=== PATIENT | female | born 1945 | race Caucasian/White ===

== ENCOUNTER → 2017-08-12 | Outpatient (CLI) | payer MEDICARE, OTHER ==
[~2017-08-12] MED LIST: CALC1TAB87 PO; ECASA81 PO; FERR325T18 PO; FOLI400T PO; K-TA10TA PO; LOSA100T PO; MULT1TAB61 PO; OMEGCAP PO; SIMV20TA PO; TRIA37.5 PO; ZANT150T2 PO
[2017-08-12 09:39] LABS: AUTOMATED NEUTROPHIL # 3.4 TH/MM3 (1.8-7.7); BASOPHIL % 0.6 % (0.0-2.0); EOSINOPHIL # 0.2 TH/MM3 (0-0.4); EOSINOPHIL % 3.3 % (0.0-4.0); HEMATOCRIT 36.6 % (35.0-46.0); HEMOGLOBIN 12.7 GM/DL (11.6-15.3); LYMPH % 21.2 % (9.0-44.0); LYMPHOCYTE # 1.1 TH/MM3 (1.0-4.8); MEAN CELL VOLUME 83.6 FL (80.0-100.0); MEAN CORPUSCULAR HEMOGLOBIN 29.1 PG (27.0-34.0); MEAN CORPUSCULAR HGB CONC 34.8 % (32.0-36.0); MEAN PLATELET VOLUME 7.7 FL (7.0-11.0); MONO % 6.2 % (0.0-8.0); MONOCYTE # 0.3 TH/MM3 (0-0.9); NEUT % 68.7 % (16.0-70.0); PLATELET COUNT 186 TH/MM3 (150-450); RED BLOOD COUNT 4.38 MIL/MM3 (4.00-5.30); RED CELL DISTRIBUTION WIDTH 13.4 % (11.6-17.2)
[2017-08-12 09:41] LABS: BILIRUBIN, URINE NEG (NEG); BLOOD, URINE NEG (NEG); GLUCOSE,URINE NEG (NEG); KETONE, URINE NEG (NEG); MUCUS URINE FEW /lpf (OCC); NITRITE,URINE NEG (NEG); PH, URINE 7.5 (5.0-8.5); SQUAMOUS EPITHELIAL CELL URINE <1 /hpf (0-5); URINE COLOR LIGHT-YELLOW (YELLW/STRAW); URINE LEUKOCYTE ESTERASE NEG (NEG)
[2017-08-12 09:46] LABS: INTERNATIONAL NORMALIZED RATIO 0.9 RATIO; PROTHROMBIN TIME - PATIENT 9.6 SEC (9.8-11.6)
[2017-08-12 09:49] LABS: ALT (GPT) 26 U/L (10-53); AST (GOT) 30 U/L (15-37); BICARBONATE 31.3 MEQ/L (21.0-32.0); BLOOD UREA NITROGEN 18 MG/DL (7-18); CALCIUM 9.5 MG/DL (8.5-10.1); CHLORIDE 106 MEQ/L (98-107); CREATININE 1.11 MG/DL (0.50-1.00); GLOMERULAR FILTRATION RATE 49 ML/MIN (>89); GLUCOSE,FASTING 106 MG/DL (74-99); SODIUM (NA) 142 MEQ/L (136-145)
[2017-08-12 09:52] LABS: ALKALINE PHOSPHATASE 88 U/L (45-117); TOTAL BILIRUBIN ADULT 0.3 MG/DL (0.2-1.0); TOTAL PROTEIN 7.3 GM/DL (6.4-8.2)
--- NOTE | 2017-08-12 10:05 | RADRPT ---
EXAM DATE/TIME: 08/12/2017 09:48 [place] COMPARISON: No previous studies available for comparison. INDICATIONS : Evaluate for pneumonia,pneumothorax or communicable disease pre op for colon surgery. MEDICAL HISTORY : None. SURGICAL HISTORY : None. ENCOUNTER: Initial ACUITY: 1 day PAIN SCORE: 0/10 LOCATION: Bilateral chest FINDINGS: PA and lateral views of the chest. 1.2 cm nodular density in the right upper lung zone. The lungs are otherwise clear. Cardiomediastinal silhouette within normal limits. No evidence of pleural effusion or pneumothorax. CONCLUSION: 1.2 cm nodular density in the right upper lung zone. Recommend noncontrast chest CT to ev aluate for pulmonary nodule. No other acute cardiopulmonary disease identified. Manoj Beyer MD on August 12, 2017 at 9:58 Board Certified Radiologist. This report was verified electronically.
--- NOTE | 2017-08-12 22:53 | EKG ---
Date Performed: 08/12/2017 Time Performed: 09:12:40 PTAGE: 72 years EKG: Sinus rhythm Normal ECG NO PREVIOUS TRACING DOCTOR: Sarthak Merida Interpretating Date/Time 08/12/2017 22:53:32
== END ==
LOC: CPRE 08:43
PROVIDERS: ATTEND Colon & Rectal Surgery
DX: Z01.810 Encounter for preprocedural cardiovascular examination (principal); Z01.812 Encounter for preprocedural laboratory examination; Z01.818 Encounter for other preprocedural examination; K57.32 Diverticulitis of large intestine without perforation or abscess without bleeding
CPT/HCPCS: 36415; 71046; 80053; 81001; 85025; 85610; 85730; 93005

== ENCOUNTER 2017-08-20 06:29 | Inpatient (IN) | payer MEDICARE, OTHER ==
[2017-08-20] VITALS (7 sets, daily range): BP systolic 141–149; BP diastolic 65–70; PULSE 67–78; RESP 16–20; TEMP 97.6–98; O2SAT 97–98
[~2017-08-20] VITALS: Ht 160 cm; Wt 64.9 kg
[2017-08-20] MEDS ORDERED: LACTATED RINGER'S 1000 ML IV PRN (07:00)
[2017-08-20] MEDS ORDERED: ceFAZolin 2 GM PREMIX 50 ML IV SCH (07:00)
[2017-08-20] MEDS ORDERED: DEXT 5%-NACL 0.9% 1000 ML INJ 1,000 ML IV SCH (07:00)
[2017-08-20] MEDS ORDERED: METRONIDAZOLE 500 MG/100 ML ISONTONIC SOLN IV SCH (07:00)
[2017-08-20] MEDS ORDERED: CHLORHEXIDINE GLUCONATE 2 % 1 PACK (2 CLOTHS) TOPICAL PRN (07:00)
[2017-08-20] MEDS ORDERED: SODIUM CHLORID 0.9% 500 ML IV PRN (07:00)
[2017-08-20] MEDS ORDERED: POVIDONE IODINE 5% (ANTISEPSIS KIT) 4 APPLICATIONS EACH NARE PRN (07:00)
[2017-08-20] MEDS ORDERED: METOPROLOL TARTRATE 25 MG TAB PO PRN (07:00)
[2017-08-20] MEDS ORDERED: ARTIFICIAL TEARS OPTH OINT 3.5 APPLIC/3.5 GM TUBO ONE (07:16)
[2017-08-20] MEDS ORDERED: SUGAMMADEX SODIUM 200 MG/2 ML VIAL IV PUSH ONE (07:16)
[2017-08-20] MEDS ORDERED: ACETAMINOPHEN 1000 MG/100 ML 100 ML IV ONE (07:16)
--- NOTE | 2017-08-20 08:02 | PD.HP.UP ---
H&P Update Note The Pre-Admit History and Physical Examination regarding the above named patient was reviewed (including, but not limited to, vital signs, heart, lungs, co-morbid conditions), and upon re-examination it is noted that: the patient's condition has not significantly changed since the last examination. Li Pimentel MD Aug 20, 2017 08:02
--- NOTE | 2017-08-20 09:32 | PD.OP ---
Operative Report Date of Surgery: Aug 20, 2017 Preoperative Diagnosis: (1) Diverticulitis Postoperative Diagnosis: (1) Diverticulitis Procedure: Cystoscopy and placement of bilateral ureteral catheters Anesthesia: General Surgeon: Da Aden Shoe Handler(s): None Operation and Findings: Indication for urologic procedures: Consult intraoperatively to pass bilateral ureteral catheters to aid in visualization of this patient's ureters during her colorectal procedure. Urologic surgery procedures in detail: Concurrent with the colorectal surgeon, I proceeded with cystoscopy and placement of bilateral ureteral catheters as follows: Initially cystoscopic evaluation was performed utilizing the rigid cystoscope with the 22 Malaysian sheath and 30 lens. Both right and left ureteral orifices were in correct anatomic position draining clear yellow urine. There were no bladder mucosal lesions, calculi or diverticula formation. I then proceeded with passing a sensor 0.035 wire up the patient's left ureter until small amount of resistance was met. A 6 Malaysian open-ended ureteral catheter was advanced up over the wire 25 cm in a cephalad direction. With the catheter in place, the wire was withdrawn and reintroduced through a secondary site via the cystoscope. In similar fashion, the contralateral side was accomplished. With both catheters in place, the bladder was drained of irrigant fluid and cystoscope withdrawn. A 16 Malaysian 10 cc Asher catheter was placed and both open-ended ureteral catheters were anchored to the Asher via a connector. All 3 catheters were then placed to gravity drainage. This completes urologic surgery portion of combined procedures on this patient. Da Aden MD Aug 20, 2017 09:32
[2017-08-20] MEDS ORDERED: DEXAMETHASONE SOD PHOS 4 MG/ML VIAL IV ONE (12:00)
[2017-08-20] MEDS ORDERED: ONDANSETRON HCL 4 MG/2 ML VIAL IV ONE (12:00)
[2017-08-20] MEDS ORDERED: GLYCOPYRROLATE 1 MG/5 ML SYRINGE IV PUSH ONE (12:00)
[2017-08-20] MEDS ORDERED: STERILE WATER FOR INJECTION 20 ML VIAL IV ONE (12:00)
[2017-08-20] MEDS ORDERED: LIDOCAINE HCL 1% PF 5 ML SYRINGE OTHER ONE (12:00)
[2017-08-20] MEDS ORDERED: PHENYLEPH/NS 1000 MCG/10 ML SYR IV ONE (12:00)
[2017-08-20] MEDS ORDERED: VECURONIUM BROMIDE 20 MG VIAL IV ONE (12:00)
[2017-08-20] MEDS ORDERED: ROCURONIUM INJ 50 MG/5 ML SYRINGE IV PUSH ONE (12:00)
[2017-08-20] MEDS ORDERED: ePHEDrine/NS 25 MG/5 ML SYRINGE IV ONE (12:00)
[2017-08-20] MEDS ORDERED: NORMOSOL R INJ 1,000 ML IV ONE (12:00)
[2017-08-20] MEDS ORDERED: PROPOFOL 200 MG/20 ML AMP IV ONE (12:00)
[2017-08-20] MEDS ORDERED: NEOSTIGMINE 5 MG/5 ML SYRINGE IV PUSH ONE (12:00)
[2017-08-20] MEDS: D5-NS + KCL 20 MEQ INJ 1,000 ML IV SCH ×2 (13:30→20:05)
[2017-08-20] MEDS ORDERED: Post-op Orders (for Pharmacy) XX ONE (13:30)
[2017-08-20] MEDS ORDERED: ENALAPRILAT 1.25 MG/ML VIAL IV PUSH PRN (13:30)
[2017-08-20] MEDS ORDERED: ACETAMINOPHEN/HYDROcodone 325 MG/5 MG TAB PO PRN ×2 (13:30)
[2017-08-20] MEDS ORDERED: ENALAPRILAT 2.5 MG/2 ML VIAL IV PUSH PRN (13:30)
[2017-08-20] MEDS ORDERED: POTASSIUM CHLOR 40 MEQ PREMIX 100 ML IV PRN (13:30)
[2017-08-20] MEDS ORDERED: BENZOCAINE 6 MG/MENTHOL 10 MG LOZENGE BUCCAL PRN (13:30)
[2017-08-20] MEDS ORDERED: POTASSIUM CHLOR 20 MEQ PREMIX 100 ML IV PRN (13:30)
[2017-08-20] MEDS ORDERED: ACETAMINOPHEN 325 MG TAB PO PRN (13:30)
[2017-08-20] MEDS ORDERED: DO NOT ADM ANY ANTICOAGULANT DRUGS PRN (13:34)
[2017-08-20] MEDS ORDERED: MORPHINE SULFATE 4 MG/ML INJ ONE (13:43)
[2017-08-20] MEDS ORDERED: MIDAZOLAM HCL 2 MG/2 ML VIAL ONE (13:43)
[2017-08-20] MEDS ORDERED: NALOXONE HCL 0.4 MG/ML AMP IV PUSH PRN (13:45)
[2017-08-20] MEDS ORDERED: diphenhydrAMINE HCL 50 MG/ML VIAL IV PUSH PRN (13:45)
[2017-08-20] MEDS ORDERED: MORPHINE SULFATE 30 MG/30 ML PCA IV SCH (13:45)
[2017-08-20 13:49] LABS: AUTOMATED NEUTROPHIL # 11.9 TH/MM3 (1.8-7.7); BASOPHIL % 0.1 % (0.0-2.0); HEMATOCRIT 33.1 % (35.0-46.0); HEMOGLOBIN 11.6 GM/DL (11.6-15.3); LYMPH % 2.7 % (9.0-44.0); LYMPHOCYTE # 0.3 TH/MM3 (1.0-4.8); MEAN CELL VOLUME 81.9 FL (80.0-100.0); MEAN CORPUSCULAR HEMOGLOBIN 28.8 PG (27.0-34.0); MEAN CORPUSCULAR HGB CONC 35.2 % (32.0-36.0); MEAN PLATELET VOLUME 7.4 FL (7.0-11.0); MONO % 2.2 % (0.0-8.0); MONOCYTE # 0.3 TH/MM3 (0-0.9); PLATELET COUNT 168 TH/MM3 (150-450); RED BLOOD COUNT 4.04 MIL/MM3 (4.00-5.30); RED CELL DISTRIBUTION WIDTH 13.3 % (11.6-17.2); WHITE BLOOD COUNT 12.5 TH/MM3 (4.0-11.0)
[2017-08-20 14:07] LABS: BICARBONATE 26.6 MEQ/L (21.0-32.0); CALCIUM 8.6 MG/DL (8.5-10.1); CREATININE 1.11 MG/DL (0.50-1.00)
[2017-08-20] MEDS: metroNIDAZOLE 500 MG INJ 100 ML IV SCH (19:05)
[2017-08-20] MEDS: ONDANSETRON HCL 4 MG/2 ML VIAL IV PUSH PRN (20:03)
[2017-08-20] MEDS: KETOROLAC TROMETHAMINE 30 MG/ML (IVP) VIAL IVP SCH (20:04)
[2017-08-20] MEDS: PCA - TOTAL MG MORPHINE DELIVERED PER SHIFT SCH (22:00)
[2017-08-21] VITALS (25 sets, daily range): BP systolic 120–162; BP diastolic 60–76; PULSE 72–110; RESP 16–20; TEMP 98.2–99.2; O2SAT 96–98
[2017-08-21] MEDS: metroNIDAZOLE 500 MG INJ 100 ML IV SCH ×2 (01:16→08:47)
[2017-08-21] MEDS: KETOROLAC TROMETHAMINE 30 MG/ML (IVP) VIAL IVP SCH ×4 (01:16→19:57)
[2017-08-21] MEDS: D5-NS + KCL 20 MEQ INJ 1,000 ML IV SCH ×3 (01:33→16:12)
[2017-08-21] MEDS: PCA - TOTAL MG MORPHINE DELIVERED PER SHIFT SCH ×3 (06:00→19:58)
[2017-08-21 07:24] LABS: AUTOMATED NEUTROPHIL # 11.3 TH/MM3 (1.8-7.7); BASOPHIL % 0.1 % (0.0-2.0); HEMATOCRIT 34.2 % (35.0-46.0); LYMPH % 3.5 % (9.0-44.0); LYMPHOCYTE # 0.4 TH/MM3 (1.0-4.8); MEAN CELL VOLUME 82.8 FL (80.0-100.0); MEAN CORPUSCULAR HEMOGLOBIN 29.2 PG (27.0-34.0); MEAN CORPUSCULAR HGB CONC 35.3 % (32.0-36.0); MEAN PLATELET VOLUME 7.9 FL (7.0-11.0); MONO % 5.3 % (0.0-8.0); MONOCYTE # 0.7 TH/MM3 (0-0.9); NEUT % 91.1 % (16.0-70.0); PLATELET COUNT 178 TH/MM3 (150-450); RED BLOOD COUNT 4.12 MIL/MM3 (4.00-5.30); RED CELL DISTRIBUTION WIDTH 13.3 % (11.6-17.2); WHITE BLOOD COUNT 12.4 TH/MM3 (4.0-11.0)
[2017-08-21 07:41] LABS: BICARBONATE 22.3 MEQ/L (21.0-32.0); CREATININE 1.27 MG/DL (0.50-1.00)
[2017-08-21] MEDS: PANTOPRAZOLE SODIUM 40 MG VIAL IVP SCH (08:48)
[2017-08-21] MEDS: LOSARTAN 50 MG TAB PO SCH (08:53)
[2017-08-21] MEDS: HEPARIN SODIUM - SQ 10,000 UNITS/ML VIAL SQ SCH (12:30)
[2017-08-21] MEDS: ONDANSETRON HCL 4 MG/2 ML VIAL IV PUSH PRN (15:04)
--- NOTE | 2017-08-21 19:15 | MP ---
cc: FREDERICK SULTANA MD, KATHLEEN MD MCCOLLUM,MD ROLAN DATE OF SURGERY 08/20/17 PREOPERATIVE DIAGNOSIS Diverticulitis POSTOPERATIVE DIAGNOSIS Diverticulitis PROCEDURES 1. Robotic low anterior resection 2. Robotic takedown of splenic flexure. 3. Robotic lysis of adhesions SURGEON Mike Pimentel MD [employer]MB[employer] Long ANESTHESIA General per ET tube ESTIMATED BLOOD LOSS 100 mL OPERATIVE INDICATIONS The patient is a 72-year-old female with history of multiple and escalating attacks of diverticulitis. OPERATIVE FINDINGS The patient had a phlegmonotous sigmoid which was folded over and wrapped down over the sigmoid colon into the pelvis. The proximal and distal bowel were healthy and soft. The liver was visualized and was without abnormalities as was the gallbladder. The uterus and ovaries on both sites were also noted to be without abnormality. PROCEDURE IN DETAIL The patient was brought to the operating room, placed in supine position. After induction of general anesthesia, the patient was placed in Mario stirrups and all bony prominences were padded. Dr. Aden then came in and performed cystoscopy with placement of bilateral ureteral catheters. Please see his operative note for details. A site was then chosen for the camera being located just to the right and above the umbilicus. A 10-12 trocar was then placed at that site under direct vision using a laparoscope. CO2 insufflation was then undertaken and a brief abdominal survey was performed with nothing noted that would preclude the robotic approach. The #1 port which was a 10-12 was then placed just inside the right anterior superior iliac spine and the five assist port was placed under the right costal margin equal distance to the #1 and the camera port. The patient was hydroplaned with the head down and slightly to the right and the omentum was brought up-and-over the transverse colon. The area of concern in the bowel was clearly visualized. The liver and gallbladder had been visualized prior to covering them with the omentum. The uterus and ovaries were visualized and were normal. The descending colon was then examined and found to have adequate length so that I did not believe that I needed to take down the splenic flexure initially. The remainder of the ports were placed as follows. The #3 DaVinci port was placed in line with the umbilicus in the left anterior axillary line and the #2 port was placed in the left anterior mid clavicular line three fingerbreadths above the umbilicus. The small bowel was brought up and out of the pelvis into the right and lay nicely without trouble and a small amount of adhesions of omentum to the descending colon were then dissected free using electrocautery. The robot was then docked. The sigmoid colon was retracted down and to the left. The mesentery was scored on the right. Dissection then continued under the inferior mesenteric vessels dissecting in this plane until the left ureter was clearly identified and swept away from the specimen. Dissection then continued laterally and superiorly as well as down into the pelvis posteriorly. A window was then made around the vessels and a white load of the echelon endostapler was placed across the vessels, held for 30 seconds, fired and removed. The staple line was examined with no sign of any significant bleeding. The dissection then continued laterally and inferiorly as much as was possible. The left lateral adhesions of the sigmoid to the left lateral pelvis were then dissected free using electrocautery carefully peeling the sigmoid colon off of the left tube and ovary. Eventually, we were able to get this free from the pelvic sidewall and dissection continued, but it was folded over on itself distally necessitating us going into the peritoneal reflection. Eventually, though we did have the colon straightened out. A sponge stick was then placed in the rectum and a site was chosen for division of the colon in the upper rectum. The mesentery at this level was divided using the harmonic scalpel and an echelon endostapler was placed across the bowel at this level. This was closed, held to 30 seconds, fired and removed. The 29 EEA stapler was then advanced through the anus and up to the rectum. There was a small dog ear and so the was dissected back an additional 2-3 cm and a reload of the echelon endostapler was placed across the dog ear to remove it. The echelon endostapler then came up and lay with a much nicer orientation. The lateral attachments of the descending colon were then dissected free and the descending colon mesentery was dissected free from the underlying Gerota's fascia. This continued up and around the splenic flexure freeing from the distal transverse colon down to the rectum. Eventually, we had plenty of length. There was one small area of serosal damage on the descending colon which was repaired in a [id number] fashion using 3-0 Vicryl. At this point, all dissection beds were examined. She did have a little bit of oozing throughout the case, particularly in the posterior peritoneum and hemostasis was obtained with electrocautery and, for additional measures, some granular Surgicel was dusted in the area. The robot was then undocked. A 10-12 cm transverse incision was made in the suprapubic area and, using electrocautery, dissection was carried down to the fascia of the anterior abdominal wall. The anterior fascia was split the length of the skin incision. The medial fibers of the rectus abdominis muscle were then divided. The posterior fascia/peritoneum was then divided the length of the skin incision as well and a wound protector was placed. The proximal stapled end of the bowel was grasped and pulled up and out through the wound protector. The previous dog ear piece had been pulled out through the trocar. A site was chosen proximally where the bowel was soft and pliable and healthy. Unfortunately, she did have diverticula all the way around the descending colon and distal transverse colon. A site was chosen for division of the bowel. The mesentery was serially divided and ligated using 0 Vicryl ties and a pursestring stapling device was placed across the bowel at this level. The distal bowel was occluded and amputated. It was taken to the back table where it was later opened and no signs of malignancy were noted. The anvil from the 29 EEA stapler was placed into the cut end of the bowel and ___ placed. Pursestring suture was secured. Unfortunately, there was a diverticular that interfered with the smooth area for the stapler and so an additional 2 cm were removed. The anvil was replaced again into the peritoneal cavity into the cut end of the bowel and the pursestring suture was secured. This laid nicely and was placed back into the peritoneal cavity. After gentle digital dilatation of the anus, the 29 EEA stapler was advanced through the anus and up to the rectal stump without difficulty. The spike was advanced just posterior to the staple line. The anvil was into the spike being careful that the bowel was not twisted. The stapler was closed, held for 30 seconds, fired and removed thus creating an enteroenterotomy. The enterotomy appeared pink and healthy circumferentially and lay without tension in a nice orientation. A small amount of warm normal saline was placed into the pelvis and digital pressure was held proximally on the bowel. Air was insufflated into the rectum until gentle tension was noted on the anastomosis with no sign of any leakage noted. The air was desufflated to the extent possible and the saline was suctioned out of the pelvis. The omentum was then brought down to lay over the anterior surface of the bowel. The posterior fascia at the suprapubic incision was closed in a running fashion using #1 PDS and the anterior fascia was closed in a running fashion with a #1 PDS. The wound was copiously irrigated with warm normal saline and the skin was closed in a running subcuticular fashion using 3-0 Vicryl. The CO2 insufflation was resumed and the laparoscope was reintroduced into the peritoneal cavity. There was no sign of any abnormality noted. The 10-12 trocar sites at the umbilicus in the right lower quadrant were then closed using the crossbow device and #1 PDS suture. These were placed but not secured until the peritoneal cavity was desufflated. When the peritoneal cavity was desufflated and the fascial sutures had been secured, the trocar sites were then copiously irrigated with warm normal saline and closed in an interrupted subcuticular fashion using 3-0 Vicryl. Steri-Strips were then applied. The right ureteral stent was removed. All sponge, needle and instrument counts were correct and the patient was returned to the post anesthesia care unit in stable condition. MD MARE Espinosa/ /1:13 PM /6:28 PM
[2017-08-22] VITALS: BP 148/66; PULSE 80; RESP 16; TEMP 98.6; O2SAT 96
[2017-08-22] MEDS: KETOROLAC TROMETHAMINE 30 MG/ML (IVP) VIAL IVP SCH ×2 (01:00→07:45)
[2017-08-22] MEDS: HEPARIN SODIUM - SQ 10,000 UNITS/ML VIAL SQ SCH (01:00)
[2017-08-22] MEDS: D5-NS + KCL 20 MEQ INJ 1,000 ML IV SCH (01:01)
[2017-08-22] MEDS: PCA - TOTAL MG MORPHINE DELIVERED PER SHIFT SCH (05:56)
[2017-08-22 06:34] LABS: AUTOMATED NEUTROPHIL # 8.1 TH/MM3 (1.8-7.7); BASOPHIL % 0.2 % (0.0-2.0); EOSINOPHIL % 0.5 % (0.0-4.0); HEMATOCRIT 32.8 % (35.0-46.0); HEMOGLOBIN 11.6 GM/DL (11.6-15.3); LYMPH % 8.8 % (9.0-44.0); LYMPHOCYTE # 0.8 TH/MM3 (1.0-4.8); MEAN CELL VOLUME 83.2 FL (80.0-100.0); MEAN CORPUSCULAR HEMOGLOBIN 29.3 PG (27.0-34.0); MEAN CORPUSCULAR HGB CONC 35.3 % (32.0-36.0); MEAN PLATELET VOLUME 8.2 FL (7.0-11.0); MONO % 4.7 % (0.0-8.0); MONOCYTE # 0.4 TH/MM3 (0-0.9); NEUT % 85.8 % (16.0-70.0); PLATELET COUNT 185 TH/MM3 (150-450); RED BLOOD COUNT 3.95 MIL/MM3 (4.00-5.30); RED CELL DISTRIBUTION WIDTH 13.7 % (11.6-17.2); WHITE BLOOD COUNT 9.4 TH/MM3 (4.0-11.0)
[2017-08-22 06:40] LABS: CALCIUM 7.8 MG/DL (8.5-10.1); CREATININE 0.99 MG/DL (0.50-1.00)
[2017-08-22] MEDS: PANTOPRAZOLE SODIUM 40 MG VIAL IVP SCH (07:44)
[2017-08-22] MEDS: LOSARTAN 50 MG TAB PO SCH (07:45)
[2017-08-22 08:00] VITALS: BP 175/77; PULSE 90; RESP 17; TEMP 98.1; O2SAT 96
[2017-08-22 09:52] VITALS: O2SAT 100
== END 2017-08-22 12:47 | disposition home or self-care (01) | DRG 331 ==
LOC: HSDI 06:29 → HCIS 16:20 → N07B 08-21 17:25
PROVIDERS: ADMIT Colon & Rectal Surgery; ATTEND Colon & Rectal Surgery
PROC: 0T788DZ Dilation of Bilateral Ureters with Intraluminal Device, Via Natural or Artificial Opening Endoscopic (ICD-10-PCS; 2017-08-20)
PROC: 8E0W4CZ Robotic Assisted Procedure of Trunk Region, Percutaneous Endoscopic Approach (ICD-10-PCS; 2017-08-20)
PROC: 0DBN4ZZ Excision of Sigmoid Colon, Percutaneous Endoscopic Approach (ICD-10-PCS; principal; 2017-08-20 08:25)
PROC: 0DBP4ZZ Excision of Rectum, Percutaneous Endoscopic Approach (ICD-10-PCS; 2017-08-20 08:25)
DX: K57.32 Diverticulitis of large intestine without perforation or abscess without bleeding (principal); I10 Essential (primary) hypertension; K21.9 Gastro-esophageal reflux disease without esophagitis; N28.9 Disorder of kidney and ureter, unspecified
CPT/HCPCS: 80048; 85025; 86850; 86900; 86901; 88307; 94150; C9113; J0131; J0690; J1100; J1644; J1885; J2250; J2270; J2370; J2405; J2710; J3010; J3480; J7120